=== PATIENT | female | born 1970 | race Caucasian/White ===

== ENCOUNTER → 2016-07-06 07:33 | Day surgery (SDC) | payer BC ==
[~2016-07-06 07:33] MED LIST: Buffered Lidocaine 1% SYR 3ML* 3 ML/SYR SYRINGE INTRADERM ONE; Lidocaine 2% MPF* 2 ML VIAL ONE; Ondansetron INJ* 2 MG/ML VIAL IV PRN; Ondansetron INJ* 2 MG/ML VIAL ONE; Propofol* 10 MG/ML 20 ML BTL IV PUSH ONE; ceFOXitin 2 GM IVPREMIX* 2 GM/50 ML BAG ONE; fentaNYL* 50 MCG/ML 2 ML VIAL (100 MCG VIAL) ONE; oxyCODONE/Acetamin 5/325 MG* TAB ONE
[2016-07-06 07:50] LABS: Manual Entry Verification AS; UR Preg Internal Control QC Line Present; UR Preg Kit Lot# 6060104
[2016-07-06 08:20] LABS: Hematocrit 34 % (35-47); Hemoglobin 11.4 g/dl (12.0-16.0); Mean Corpuscular HGB Conc 33 g/dl (31-36); Mean Corpuscular Hemoglobin 29 pg (27-31); Mean Corpuscular Volume 87 fL (80-97); Mean Platelet Volume 8 um3 (7.4-10.4); Red Blood Count 3.92 10^6/ul (4.0-5.4); Red Cell Distribution Width 15 % (10.5-15)
[2016-07-06] MEDS: fentaNYL* 50 MCG/ML 2 ML VIAL (100 MCG VIAL) IV PRN ×2 (11:11→11:24)
[2016-07-06 13:25] VITALS: BP 109/66
--- NOTE | 2016-07-06 20:52 | OP ---
DATE OF OPERATION: 07/06/16 - LOCATED WITHIN [facility] DATE OF : 72 SURGEON: Lili Garner MD. ANESTHESIOLOGIST: Dr. Guerra. ANESTHESIA: General anesthesia. PRE-OP DIAGNOSIS: Menometrorrhagia. POST-OP DIAGNOSIS: Menometrorrhagia. OPERATIVE PROCEDURE: Dilation and curettage, hysteroscopy and NovaSure endometrial ablation. ESTIMATED BLOOD LOSS: Minimal. URINE OUTPUT: 325 cc of clear yellow urine. FLUIDS: Less than 1000 cc of crystalloid. DEFICIT: Zero. FINDINGS: Revealed normal uterine cavity, no evidence of polyp, redundant endometrial folds, normal tubal ostia seen, cavity length was 5, cavity width was 4.4, length of cycle was 122 seconds, ohms of 121 ohms. COMPLICATIONS: None apparent. DISPOSITION: Stable to recovery room. DESCRIPTION OF PROCEDURE: The patient was placed in dorsal lithotomy position. Legs were placed in universal Hay stirrups. After undergoing general anesthesia, the perineum and vagina were prepped and draped in the sterile standard fashion. The patient was identified with universal protocol for correct procedure, position and patient. A self-cath was used to drain the bladder for 325 cc of clear yellow urine. The self-cath was removed. A sterile speculum was inserted. The cervix was visualized, grasped on the anterior lip with a single-tooth tenaculum and the cervical length was determined with a #5 Brown dilator, was noted to be 4 cm deep. Sounding was then performed at 9 cm giving a cavity length of 5 cm. The cavity length was determined to be 5 cm. The hysteroscope was then inserted. The uterine cavity was noted to have a normal contour. No polyps were noted per se but there was redundant endometrium , folding over on itself. Both tubal ostia were noted to have normal appearance. A sharp curettage was then performed. This tissue was sent to pathology. The ablation was then carried out in a standard technique. The NovaSure ablative device was seated. The cavity width was noted to be 4.4 cm and the cavity assessment was clear and the ablation was then carried out for 122 seconds at ohms of 121. The NovaSure ablation device was then removed using standard technique and hysteroscope was reinserted confirming excellent cautery effect at the endometrium. The hysteroscope was removed. Single-tooth tenaculum removed. Sterile speculum removed. All sponge, instruments and blade counts were correct throughout the case. The patient tolerated the procedure well and went to the recovery room in stable condition. [id number]/[facility] #: [id number] MTDD
== END | disposition home or self-care (01) ==
LOC: OR 07:33
PROVIDERS: ATTEND Obstetrics & Gynecology
DX: N93.8 Other specified abnormal uterine and vaginal bleeding (principal); Z87.891 Personal history of nicotine dependence; Z86.718 Personal history of other venous thrombosis and embolism; Z79.01 Long term (current) use of anticoagulants; D64.9 Anemia, unspecified
CPT/HCPCS: 36415; 81025; 85025; 85610; 85730; 86850; 86900; 86901; 88305; A9270-GY; J0694; J2405; J2704; J3010

== ENCOUNTER 2018-06-12 08:08 | Emergency (ER) | payer BC ==
[2018-06-12] MEDS ORDERED: NS 0.9% 1000 ML* 1,000 ML IV ONE (08:24)
[2018-06-12 08:50] LABS: ABS Basophils 0 10^3/ul (0-0.2); ABS Eosinophils 0.1 10^3/ul (0-0.6); ABS Lymphocytes 0.6 10^3/ul (1.0-4.8); ABS Monocytes 0.3 10^3/ul (0-0.8); ABS Nucleated RBC 0 10^3/ul; Eosinophil % 1.9 %; Hematocrit 44 % (35-47); Lymphocyte % 14.6 %; Mean Corpuscular HGB Conc 34 g/dl (31-36); Mean Corpuscular Hemoglobin 31 pg (27-31); Mean Corpuscular Volume 93 fL (80-97); Mean Platelet Volume 8.1 fL (7.4-10.4); Nucleated Red Blood Cells % 0.1; Platelet Count 176 10^3/ul (150-450); Red Blood Count 4.77 10^6/ul (4.00-5.40); Red Cell Distribution Width 13 % (10.5-15)
--- NOTE | 2018-06-12 08:50 | ED ---
Abdominal Pain/Female - HPI Summary HPI Summary: Patient presents with 3 weeks of nausea, vomiting and diarrhea. She reports she has intermittent abdominal pain across the upper abdomen - this is not necessarily worse with eating or drinking. Past 2 days pain as radiated into her Rt back region. Pain 5/10 currently - nausea controlled. She describes stools as loose and watery and has not had a formed stool in the past 3 weeks. Denies hematochezia, hematemesis, melena, mucus stool. She does have increased abdominal "gurgling" - denies bloating. Reports a fever yesterday of 100 F orally. Otherwise denies fever, chills. States this started after eating lunch one day at work with intense nausea. She reports she made her own lunch that day and has not had any abnormal foods or beverages prior to or since. She denies travel or consuming water from foreign sources such as creeks, duff , etc. Denies recent use of antibiotics or any new medication for that matter. 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 A few family members also have history of clotting issues but she has not been definitively diagnosed with any particular condition. Denies history of GI bleed and no reports of bruising, bleeding gums, epistaxis, etc. H/o hiatal hernia - asx at this time. Also reports h/o umbilical hernia w/ mesh repair. Noted CULLEN w/ congestion starting yesterday - h/o allergies w/ intermittent sx - sx today are well controlled and not of concern for her. 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 She reports she's had no complications or difficulty since this was removed and her left kidney is healthy since. Denies dysuria, urinary frequency, urinary urgency, hematuria. She does admit to a history of multiple kidney stones and this does not feel the same Also reports a history of abnormal vaginal discharge with irritation over the past 1+ months. She attributed this to "hormonal changes". She has not had a menstrual period in many months since she's had an ablation which was performed due to heavy bleeding while on Xarelto. She does still get cyclical symptoms of breast tenderness, ovulation, etc. however notices this is more spread out than usual. History of STD in her youth with PID - no complications or issues since. No h/o ovarian cysts, fibroids or abnormal pap smear. Last meal - yesterday morning Last liquid - PO contrast today No cardiopulm hx No sleep apnea On xarelto w/ h/o coagulopathy - no active bleeding or signs of bleeding recently No dental work No previous issues w/ surgery for nephrectomy and umbilical hernia repair - History of Current Complaint Chief Complaint: EDAbdPain Stated Complaint: ABD PAIN, NAUSEOUS, VOMITING Time Seen by Provider: 06/12/18 08:11 Hx Obtained From: Patient Pain Intensity: 5 Allergies/Adverse Reactions: Allergies Allergy/AdvReac Type Severity Reaction Status Date / Time hydrocodone Allergy Itching Verified 06/12/18 08:15 Sulfa (Sulfonamide Allergy Hives Verified 06/12/18 08:15 Antibiotics) PMH/Surg Hx/FS Hx/Imm Hx Previously Healthy: Yes Endocrine/Hematology History: Reports: Hx Anticoagulant Therapy - xarelto, Hx Blood Disorders - possible coagulopathy - no xarelto for h/o clots x 3 (DVT, PE) , Hx Anemia - on iron Denies: Hx Diabetes, Hx Thyroid Disease, Autoimmune Disease Cardiovascular History: Reports: Other Cardiovascular Problems/Disorders - 2 DVT 's in past Denies: Hx Congestive Heart Failure, Hx Hypertension, Hx Pacemaker/ICD Respiratory History: Reports: Hx Pulmonary Embolism - 2 years ago, Other Respiratory Problems/Disorders - SEASONAL ALLERGIES Denies: Hx Asthma GI History: Reports: Hx Hiatal Hernia, Other GI Disorders - umibilcal hernia - repair with surgery History: Reports: Hx Kidney Infection - none currently, Hx Kidney Stones - none currently, Other Problems/Disorders - Rt kidney removed at 16 y.o. - Lt works well Denies: Hx Renal Disease Musculoskeletal History: Reports: Hx Arthritis - RIGHT KNEE, Other Musculoskeletal History - SCOLISOSIS WHEN YOUNG Sensory History: Reports: Hx Contacts or Glasses - both - will bring in glasses Denies: Hx Hearing Aid Opthamlomology History: Reports: Hx Contacts or Glasses - both - will bring in glasses Psychiatric History: Reports: Hx Anxiety - ON MEDICATION, Hx Depression - ON MEDICATION, Hx Panic Disorder - Cancer History Hx Chemotherapy: No Hx Radiation Therapy: No - Surgical History Surgery Procedure, Year, and Place: 1987 RIGHT NEPHRECTOMY [facility] [place]. 2004 kidney STONE EXTRACION [facility]. HERNIA REPAIR with mesh on 2nd surgery X2 Hx Anesthesia Reactions: No Infectious Disease History: No Infectious Disease History: Denies: Hx Clostridium Difficile, Traveled Outside the [place] in Last 30 Days - Family History Known Family History: Positive: Blood Disorder - clots Family History: No FHx of Malignant Hyperthermia. No FHx of Breast Cancer. No FHx of Family Anesthesia Reaction - Social History Alcohol Use: Weekly Alcohol Amount: Not x 1 month Hx Substance Use: No Substance Use Type: Reports: None Hx Tobacco Use: Yes - not currently Smoking Status (MU): Former Smoker Amount Used/How Often: 1 PACK PER WEEK X 9 YEARS NOW FOR THE LAST 3 YEARS Have You Smoked in the Last Year: Yes Review of Systems Positive: Fatigue - feels wiped out from persistent N/V/D Eyes: Negative ENT: Other - mild UR congestion x 2 days Cardiovascular: Negative Respiratory: Negative Positive: Abdominal Pain, Vomiting, Diarrhea, Nausea Genitourinary: Negative Positive: see HPI Musculoskeletal: Negative Skin: Negative Positive: Headache - mild x 2 days Psychological: Normal - concerned All Other Systems Reviewed And Are Negative: Yes Physical Exam Triage Information Reviewed: Yes Vital Signs On Initial Exam: Initial Vitals Temp Pulse Resp BP Pulse Ox 99 F 89 16 138/74 97 06/12/18 08:10 06/12/18 08:10 06/12/18 08:10 06/12/18 08:10 06/12/18 08:10 Vital Signs Reviewed: Yes Appearance: Positive: Well-Appearing, No Pain Distress, Well-Nourished Skin: Positive: Warm, Skin Color Reflects Adequate Perfusion, Dry Head/Face: Positive: Normal Head/Face Inspection Eyes: Positive: Normal, EOMI, LEILANI, Conjunctiva Clear - anicteric sclera ENT: Positive: Normal ENT inspection, Hearing grossly normal, Pharynx normal - mucosa moist Neck: Positive: Supple - no gross thyromeglay Respiratory/Lung Sounds: Positive: Clear to Auscultation, Breath Sounds Present. Negative: Rales, Rhonchi, Wheezes Cardiovascular: Positive: Normal, RRR, S1, S2. Negative: Murmur, Rub, Leg Edema Left, Leg Edema Right Abdomen Description: Positive: No Organomegaly, Soft, Other: - LLQ and suprapubic regions TTP - no rebounding - no other areas of tenderness. Negative : CVA Tenderness (R), CVA Tenderness (L), Distended, Guarding, Hernia @, McBurney's Point Tenderness Bowel Sounds: Positive: Present Pelvic Exam: Positive: External Exam Normal, Speculum Exam Normal, Bimanual Exam Normal, No Cerv. Motion Tender, No Masses, Discharge - whitish, yellow, Other - uterus is posterior. Negative: Active Bleeding, Cervicitis, Lesions Musculoskeletal: Positive: Normal, Strength/ROM Intact Neurological: Positive: Normal, Sensory/Motor Intact, Alert, Oriented to Person Place, Time, CN Intact II-III Psychiatric: Positive: Normal - concerned but polite, cooperative, pleasant Diagnostics - Vital Signs Vital Signs Temp Pulse Resp BP Pulse Ox 06/12/18 08:10 99 F 89 16 138/74 97 - Laboratory Result Diagrams: 06/12/18 08:32 06/12/18 08:32 Lab Statement: Any lab studies that have been ordered have been reviewed, and results considered in the medical decision making process. Abdominal Pain Fem Course/Dx - Course Course Of Treatment: Patient presents with nausea vomiting diarrhea over the past 3 weeks. Exam is unremarkable for any one acute pathology. Labs are only abnormal with urobiligen on U/A and elevated CRP in 30's. Vag cx's are neg for gardnerella and yeast - she also has a painless pelvic exam. U/S reveals cyst on B/L ovaries but none requiring aggressive tx today (< 5 cm, no signs of hemorrhage/infection and no torsion). CT reveals a possible posterior lateral vaginal wall cyst of the 2.3cm in size. Again, no s/sx of infection here and pelvic exam unremarkable. Discussed case w/ Dr. Grissom and pt - recommend f/u outpt. She may benefit from a HIDA CCK given GI sx and urobil on U/A but most importantly needs f/u for vaginal wall cyst. Pt voices understanding need for f/ u and plans to contact her PCP and Dr. Garner with whom she follows for EMBEDDED NURSE care. Denies personal/fam hx of CA but reports GM w/ colon CA in 80's. She is aware these findings could be causing her sx and importance of f/u. If danger s/sx present, she will return to the ED. - Diagnoses Provider Diagnoses: Abdominal pain in female, Vomiting and diarrhea, Vaginal wall cyst, Ovarian cyst Discharge - Sign-Out/Discharge Documenting (check all that apply): Patient Departure - Discharge Plan Condition: Stable Disposition: HOME Prescriptions: Ondansetron ODT TAB* [Zofran 4 MG Odt TAB*] 8 mg PO Q8H PRN #12 tab.odt PRN Reason: Nausea Patient Education Materials: Ovarian Cyst (ED), Acute Nausea and Vomiting (ED) Referrals: Lili Garner MD [Medical Doctor] - [facility] [Outside] Additional Instructions: The definitive cause of your nausea, vomiting and diarrhea was not identified today however you were found to have ovarian cysts bilaterally. These may be treated with warm compresses and NSAIDs. See education for details. Additionally, you were found to have a cyst along the posterior vaginal wall on your CT scan. This needs close follow-up with your pi/senior research associate. Please call tomorrow to schedule an appointment. You may benefit from direct imaging with a hysteroscopy and/or an MRI as well as additional labs. Your pi/senior research associate will meet with you to decide what is the next best step in your care. This may be causing your symptoms of nausea, vomiting and diarrhea. You were given anti- nausea medicine to take until you can get follow-up. *If in the meantime you develop severe pain, vaginal bleeding, fever, intractable vomiting or diarrhea, return to the ED Additionally, your symptoms could be from a dysfunctional gallbladder. Your U/S and CT scan do not reveal acute pathology today however a HIDA CCK may provide more information. Follow-up with PCP for this additional testing as needed. Call tomorrow to schedule an appointment. - Billing Disposition and Condition Condition: STABLE Disposition: Home
[2018-06-12 09:09] LABS: ALT 16 U/L (7-52); AST 17 U/L (13-39); Albumin/Globulin Ratio 1.7 (1-3); Alkaline Phosphatase 42 U/L (34-104); Anion Gap 7 mmol/L (2-11); BUN/Creatinine Ratio 11.8 (8-20); Blood Urea Nitrogen 11 mg/dL (6-24); C Reactive Protein 34.36 mg/L (<8.01); CO2 Carbon Dioxide 25 mmol/L (22-32); Chloride 104 mmol/L (101-111); EGFR Non-African American 64.6 (>60); Globulin 2.3 g/dL (2-4); Glucose 101 mg/dL (70-100); Potassium 3.6 mmol/L (3.5-5.0); Sodium 136 mmol/L (135-145); Total Protein 6.3 g/dL (6.4-8.9)
[2018-06-12 09:16] LABS: HCG Pregnancy < 0.60 mIU/mL
[2018-06-12 09:30] LABS: TSH (Thyroid Stimulating Horm) 1.16 mcIU/mL (0.34-5.60)
[2018-06-12] MEDS ORDERED: Iodixanol* (CONTRAST) 320 MG/ML 100 ML SDV IV ONE (11:46)
[2018-06-12 13:20] LABS: Urine Appearance Clear; Urine Bilirubin Negative (Negative); Urine Blood Negative (Negative); Urine Color Yellow; Urine Glucose Negative (Negative); Urine Ketones 1+ (Negative); Urine Nitrite Negative (Negative); Urine Protein Negative (Negative); Urine Specific Gravity 1.017 (1.010-1.030); Urine Urobilinogen Positive (Negative)
[2018-06-12 15:52] VITALS: BP 111/68
== END 2018-06-12 15:51 | disposition home or self-care (01) ==
LOC: ED 08:08
DX: R10.9 Unspecified abdominal pain (principal); R19.7 Diarrhea, unspecified; N89.8 Other specified noninflammatory disorders of vagina; N83.202 Unspecified ovarian cyst, left side; N83.201 Unspecified ovarian cyst, right side; R11.2 Nausea with vomiting, unspecified; Z88.2 Allergy status to sulfonamides; Z88.5 Allergy status to narcotic agent; Z87.442 Personal history of urinary calculi; Z83.2 Family history of diseases of the blood and blood-forming organs and certain disorders involving the immune mechanism; Z90.5 Acquired absence of kidney; Z87.891 Personal history of nicotine dependence
CPT/HCPCS: 36415; 74177; 76830; 80053; 81003; 83605; 83690; 83735; 84443; 84702; 85025; 85730; 86140; 87480; 87491; 87510; 87591; 87661; 96361; 96374; 99283; Q9967

== ENCOUNTER → 2019-03-21 10:43 | Emergency (ER) | payer BC ==
[2019-03-21 11:07] LABS: ABS Eosinophils 0.1 10^3/ul (0-0.6); ABS Lymphocytes 0.9 10^3/ul (1.0-4.8); ABS Monocytes 0.3 10^3/ul (0-0.8); ABS Neutrophils 4.2 10^3/ul (1.5-7.7); Eosinophil % 1.5 %; Hematocrit 41 % (35-47); Hemoglobin 14.1 g/dL (12.0-16.0); Lymphocyte % 15.5 %; Mean Corpuscular HGB Conc 34 g/dL (31-36); Mean Corpuscular Hemoglobin 32 pg (27-31); Mean Corpuscular Volume 94 fL (80-97); Mean Platelet Volume 8.2 fL (7.4-10.4); Platelet Count 193 10^3/uL (150-450); Red Blood Count 4.41 10^6 /uL (3.70-4.87); Red Cell Distribution Width 13 % (10-15); White Blood Count 5.5 10^3/uL (3.5-10.8)
[2019-03-21 11:26] LABS: Albumin 4.1 g/dL (3.2-5.2); Albumin/Globulin Ratio 1.8 (1-3); BUN/Creatinine Ratio 14.6 (8-20); Calcium 9.3 mg/dL (8.6-10.3); EGFR African American 82.3 (>60); Globulin 2.3 g/dL (2-4); Total Bilirubin 0.7 mg/dL (0.2-1.0); Total Protein 6.4 g/dL (6.4-8.9)
[2019-03-21 11:27] LABS: INR 1.15 (0.82-1.09)
--- NOTE | 2019-03-21 12:30 | ED ---
HPI Chest Pain - HPI Summary HPI Summary: This pt is a 48 y/o female presenting to [facility] c/o cough, chest pain and SOB. Pt reports she went to see her PCP for a cough she has had since 02/23/19. Her chest pain is described under her left breast. Pt states she was "sick" for 2 weeks but symptoms resolved for 1 week and her symptoms came back 2 days ago. Denies swelling in legs. PMHx of DVTs x3 and PE x1. Pt reports she anticoagulated on Xarelto. She states her first blood clot was in 2013 when she thought she had a pulled muscle in her back and waited 2 weeks until she was sent to the ED and was found to have a PE and DVT. The first time she was dx with a DVT she had no swelling. The second time she was dx with a DVT pt had left leg swelling. 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 She notes she is on a weight class and stopped going for 2 weeks but has resumed classes for 1.5 weeks now. - History of Current Complaint Chief Complaint: EDChestWallPain Time Seen by Provider: 03/21/19 12:16 Hx Obtained From: Patient Onset/Duration: Started Days Ago, Still Present Timing: Lasting Days Pain Intensity: 5 Chest Pain Radiates: No Aggravating Factor(s): Nothing Alleviating Factor(s): Nothing Associated Signs and Symptoms: Positive: Chest Pain, Shortness of Breath, Cough. Negative: Fever, Edema - Allergy/Home Medications Allergies/Adverse Reactions: Allergies Allergy/AdvReac Type Severity Reaction Status Date / Time hydrocodone Allergy Itching Verified 06/12/18 08:15 Sulfa (Sulfonamide Allergy Hives Verified 06/12/18 08:15 Antibiotics) PMH/Surg Hx/FS Hx/Imm Hx Endocrine/Hematology History: Reports: Hx Anticoagulant Therapy - xarelto, Hx Blood Disorders - possible coagulopathy - no xarelto for h/o clots x 3 (DVT, PE) , Hx Anemia - on iron Denies: Hx Diabetes, Hx Thyroid Disease Cardiovascular History: Reports: Hx Deep Vein Thrombosis, Other Cardiovascular Problems/Disorders - 2 DVT's in past Denies: Hx Congestive Heart Failure, Hx Hypertension, Hx Pacemaker/ICD Respiratory History: Reports: Hx Pulmonary Embolism - 2 years ago, Other Respiratory Problems/Disorders - SEASONAL ALLERGIES Denies: Hx Asthma GI History: Reports: Hx Hiatal Hernia, Other GI Disorders - umibilcal hernia - repair with surgery History: Reports: Hx Kidney Infection - none currently, Hx Kidney Stones - none currently, Other Problems/Disorders - Rt kidney removed at 16 y.o. - Lt works well Denies: Hx Renal Disease Musculoskeletal History: Reports: Hx Arthritis - RIGHT KNEE, Other Musculoskeletal History - SCOLISOSIS WHEN YOUNG Sensory History: Reports: Hx Contacts or Glasses - both - will bring in glasses Denies: Hx Hearing Aid Opthamlomology History: Reports: Hx Contacts or Glasses - both - will bring in glasses Psychiatric History: Reports: Hx Anxiety - ON MEDICATION, Hx Depression - ON MEDICATION, Hx Panic Disorder - Cancer History Hx Chemotherapy: No Hx Radiation Therapy: No - Surgical History Surgery Procedure, Year, and Place: 1987 RIGHT NEPHRECTOMY [facility] [place]. 2003 kidney STONE EXTRACION [facility]. HERNIA REPAIR with mesh on 2nd surgery X2 Hx Anesthesia Reactions: No Infectious Disease History: No Infectious Disease History: Denies: Hx Clostridium Difficile, Traveled Outside the [place] in Last 30 Days - Family History Known Family History: Positive: Blood Disorder - clots Family History: No FHx of Malignant Hyperthermia. No FHx of Breast Cancer. No FHx of Family Anesthesia Reaction - Social History Occupation: Employed Full-time - social work msw works in clinical social work aide Alcohol Use: Weekly Alcohol Amount: Not x 1 month Hx Substance Use: No Substance Use Type: Reports: None Hx Tobacco Use: Yes - not currently Smoking Status (MU): Former Smoker Amount Used/How Often: 1 PACK PER WEEK X 9 YEARS NOW FOR THE LAST 3 YEARS Have You Smoked in the Last Year: Yes Review of Systems Negative: Fever, Chills Positive: Chest Pain Positive: Shortness Of Breath, Cough Negative: Edema All Other Systems Reviewed And Are Negative: Yes Physical Exam - Summary Physical Exam Summary: Constitutional: Well-developed, Well-nourished, Alert. (-) Distressed Skin: Warm, Dry HENT: Normocephalic; Atraumatic Eyes: Conjunctiva normal Neck: Musculoskeletal ROM normal neck. (-) JVD, (-) Stridor, (-) Tracheal deviation Cardio: Rhythm regular, rate normal, Heart sounds normal; Intact distal pulses; The pedal pulses are 2+ and symmetric. Radial pulses are 2+ and symmetric. Pulmonary/Chest wall: Effort normal. (-) Respiratory distress, (-) Wheezes, (-) Rales. Reproducible chest wall tenderness right along the costal margin. Abd: Soft, (-) tenderness, (-) Distension, (-) Guarding, (-) Rebound Musculoskeletal: (-) Edema Neuro: Alert, Oriented x3 Psych: Mood and affect Normal Triage Information Reviewed: Yes Vital Signs On Initial Exam: Initial Vitals Temp Pulse Resp BP Pulse Ox 99.4 F 61 18 121/69 99 03/21/19 10:50 03/21/19 10:50 03/21/19 10:50 03/21/19 10:50 03/21/19 10:50 Vital Signs Reviewed: Yes Procedures - Sedation Patient Received Moderate/Deep Sedation with Procedure: No Diagnostics - Vital Signs Vital Signs Temp Pulse Resp BP Pulse Ox 03/21/19 10:50 99.4 F 61 18 121/69 99 - Laboratory Lab Results: Lab Results 03/21/19 03/21/19 03/21/19 Range/Units 10:56 10:56 10:56 WBC 5.5 (3.5-10.8) 10^3/uL RBC 4.41 (3.70-4.87) 10^6 /uL Hgb 14.1 (12.0-16.0) g/dL Hct 41 (35-47) % MCV 94 (80-97) fL MCH 32 H (27-31) pg MCHC 34 (31-36) g/dL RDW 13 (10-15) % Plt Count 193 (150-450) 10^3/uL MPV 8.2 (7.4-10.4) fL Neut % (Auto) 76.6 % Lymph % (Auto) 15.5 % Stafford % (Auto) 5.6 % Eos % (Auto) 1.5 % Baso % (Auto) 0.8 % Absolute Neuts (auto) 4.2 (1.5-7.7) 10^3/ul Absolute Lymphs (auto) 0.9 L (1.0-4.8) 10^3/ul Absolute Monos (auto) 0.3 (0-0.8) 10^3/ul Absolute Eos (auto) 0.1 (0-0.6) 10^3/ul Absolute Basos (auto) 0.0 (0-0.2) 10^3/ul Absolute Nucleated RBC 0.0 10^3/ul Nucleated RBC % 0.0 INR (Anticoag Therapy) 1.15 H (0.82-1.09) D-Dimer, Quantitative < 200 (Less Than 230) ng/mL Sodium 139 (135-145) mmol/L Potassium 4.0 (3.5-5.0) mmol/L Chloride 106 (101-111) mmol/L Carbon Dioxide 31 (22-32) mmol/L Anion Gap 2 (2-11) mmol/L BUN 13 (6-24) mg/dL Creatinine 0.89 (0.51-0.95) mg/dL Est GFR ( Amer) 82.3 (>60) Est GFR (Non-Af Amer) 68.0 (>60) BUN/Creatinine Ratio 14.6 (8-20) Glucose 97 (70-100) mg/dL Calcium 9.3 (8.6-10.3) mg/dL Total Bilirubin 0.70 (0.2-1.0) mg/dL AST 15 (13-39) U/L ALT 14 (7-52) U/L Alkaline Phosphatase 38 (34-104) U/L Troponin I 0.00 (<0.04) ng/mL Total Protein 6.4 (6.4-8.9) g/dL Albumin 4.1 (3.2-5.2) g/dL Globulin 2.3 (2-4) g/dL Albumin/Globulin Ratio 1.8 (1-3) Result Diagrams: 03/21/19 10:56 03/21/19 10:56 Lab Statement: Any lab studies that have been ordered have been reviewed, and results considered in the medical decision making process. - EKG 10:43 Cardiac Rate: NL - at 70 bpm EKG Rhythm: Sinus Rhythm Summary of EKG Findings: An EKG at 10:43 reveals sinus rhythm at 70 bpm. No STEMI. No change to prior EKG except for heart rate increased from 57 to 70. Chest Pain Course/Dx - Course Assessment/Plan: Pt is a 48 y/o female, with hx of DVT and PE, presenting to [facility] c/o cough, chest pain and SOB. Pt is on Xarelto. Labs show D-dimer is negative. An EKG at 10:43 reveals sinus rhythm at 70 bpm. No STEMI. No change to prior EKG except for heart rate increased from 57 to 70. On exam pt has reproducible chest wall tenderness right along the costal margin consistent wtih intercostal muscle strain. Pt will be discharged home with follow up from her PCP. - Diagnoses Provider Diagnoses: Intercostal muscle strain Discharge ED - Sign-Out/Discharge Documenting (check all that apply): Patient Departure - Discharge home - Discharge Plan Condition: Stable Disposition: HOME Patient Education Materials: Chest Wall Pain (ED) Referrals: Jeanette Latham MD [Primary Care Provider] - - Billing Disposition and Condition Condition: STABLE Disposition: Home - Attestation Statements Document Initiated by Scribe: Yes Documenting Scribe: Cyndee Whiting Provider For Whom Scribe is Documenting (Include Credential): Blair Sanchez MD Scribe Attestation: Cyndee Melendez scribed for Blair Sanchez MD on 03/21/19 at 1914. Scribe Documentation Reviewed: Yes Provider Attestation: The documentation as recorded by the Cyndee jenkins accurately reflects the service I personally performed and the decisions made by , Blair Sanchez MD Status of Scribe Document: Viewed
[2019-03-21 12:43] VITALS: BP 125/73
== END | disposition home or self-care (01) ==
LOC: ED 10:43
DX: S29.011A Strain of muscle and tendon of front wall of thorax, initial encounter (principal); Z86.718 Personal history of other venous thrombosis and embolism; Z86.711 Personal history of pulmonary embolism; Z79.899 Other long term (current) drug therapy; Z87.891 Personal history of nicotine dependence; Z79.01 Long term (current) use of anticoagulants; D64.9 Anemia, unspecified; F32.9 Major depressive disorder, single episode, unspecified; Z87.442 Personal history of urinary calculi; F41.9 Anxiety disorder, unspecified; X58.XXXA Exposure to other specified factors, initial encounter; Y92.9 Unspecified place or not applicable; Z88.5 Allergy status to narcotic agent; Z88.2 Allergy status to sulfonamides; R05 Cough
CPT/HCPCS: 36415; 80053; 84484; 85025; 85379; 85610; 93005; 99282